=== PATIENT | male | born 1970 | race African-American/Black ===

== ENCOUNTER 2016-10-03 21:53 | Emergency (ER) | payer SELFPAY ==
[~2016-10-03] VITALS: Ht 185.4 cm; Wt 86.0 kg
[2016-10-03 23:07] LABS: EOSINOPHILS % 1.5 % (0.0-5.0); HEMATOCRIT. 39.1 % (42.0-52.0); HEMOGLOBIN. 13.1 g/dL (14.0-18.0); LYMPHOCYTES % 36.7 % (20.0-50.0); MEAN CORPUSCULAR VOLUME 89.3 fL (80.0-94.0); MEAN PLATELET VOLUME 7.3 fl (7.4-10.4); MONOCYTES % 8.1 % (2.0-8.0); NEUTROPHILS % 52.7 % (40.0-76.0); PLATELET 325 x1000/uL (130-400); RED BLOOD CELL COUNT 4.38 mill/uL (4.7-6.1)
[2016-10-03 23:17] LABS: PARTIAL THROMBOPLASTIN TIME 26.5 sec (24.0-34.0); PROTHROMBIN TIME 10.6 sec
[2016-10-03 23:46] VITALS: BP 111/63
== END 2016-10-03 23:46 | disposition home or self-care (01) ==
LOC: ER 21:53
DX: R04.0 Epistaxis (principal)
CPT/HCPCS: 36415; 85025; 85610; 85730; 86850; 86900; 99284